=== PATIENT | female | born 1955 | race Caucasian/White ===

== ENCOUNTER 2020-12-26 05:16 | Inpatient (IN) ==
--- NOTE | 2020-12-21 08:40 | Anesthesiology Consultation ---
Date of Service December 21, 2020 Assessment & Plan (1) Encounter for pre-operative examination: - COVID screening: Per assessment on 12/12: Travel screen negative, no known COVID-19 positive contacts or current COVID-19 related symptoms. Surgeon arranging preop COVID testing (12/20 at [facility] [place]). Awaiting results. - Cardiology (09/05/20): Seen for preoperative cardiac visit. Hx of LBBB noted on stress test in 2018- was converted to Lexiscan stress test which was negative for ischemia. EKG done in office- "rate-related, normal EKG." Previous stress testing negative for ischemia- no anginal symptoms. "No further testing is required prior to surgery... She is an acceptable cardiovascular risk for any necessary surgery such as knee replacement surgery and does not require further cardiac testing." Chart Review Chart Review: Acceptable Risk for Surgery and Patient NOT seen in Pre Admission Testing History Surgery Operation Date: 12/26/20 10:20 Proposed Procedures p Right Total Knee Arthroplasty - Nathan Li DO Height/Weight Height: 5 ft 6 in Weight: 86.183 kg Allergies Allergy/AdvReac Type Severity Reaction Status Date / Time suture Allergy Intermediate Vicryl Verified 12/12/20 16:54 suture- caused infection Medications Home Medications Medication Instructions Recorded Confirmed Last Taken albuterol sulfate [Ventolin HFA] 2 puff INHALATION 6XD PRN 06/21/20 12/12/20 Unknown calcium carbonate [Calcium 600] 600 mg PO QAM 06/21/20 12/12/20 Unknown cholecalciferol (vitamin D3) 5,000 mcg PO QAM 06/21/20 12/12/20 Unknown [Vitamin D3] cyanocobalamin (vitamin B-12) 2,500 mcg PO QAM 06/21/20 12/12/20 Unknown fluticasone propionate 1 inh INHALATION DAILY PRN 06/21/20 12/12/20 Unknown ibuprofen 400 mg PO Q6H PRN 06/21/20 12/12/20 Unknown levothyroxine 50 mcg PO QAM 06/21/20 12/12/20 Unknown multivitamin with iron 1 tab PO QAM 06/21/20 12/12/20 Unknown venlafaxine 150 mg PO QAM 06/21/20 12/12/20 Unknown Bifidobacterium infantis [Align] 10.5 mg PO QAM 09/06/20 12/12/20 Unknown aspirin [Aspirin Low Dose] 81 mg PO QAM 09/06/20 12/12/20 Unknown lisinopril 40 mg PO QAM 09/06/20 12/12/20 Unknown rosuvastatin 10 mg PO 09/06/20 12/12/20 Unknown zinc 50 mg PO QAM 09/06/20 12/12/20 Unknown Past Medical History Medical History Anemia Under surveillance by PCP Anxiety Asthma Well controlled/"allergy induced" DVT (deep venous thrombosis) Post-op hysterectomy (1996)- AC since discontinued, no issues since History of COVID-19 Dx 08/25/20 ([facility] Symptoms at time of severe headache, fatigue, SOB > symptoms resolved except occasional headache Hyperlipidemia Hypertension Hypothyroidism LBBB (left bundle branch block) Chronic > noted on 2018 stress test (negative for ischemia) Osteoarthritis Past Family History Family History Mother Family history of diabetes mellitus Family history of reaction to anesthesia extra sleepy, oxygen saturation would drop while sleeping. Aunt Family hx of colon cancer Family history of diabetes mellitus Family history of reaction to anesthesia extra sleepy, oxygen saturation would drop while sleeping. Aunt Family hx of colon cancer Family history of diabetes mellitus Aunt Family history of diabetes mellitus Aunt Family history of diabetes mellitus Aunt Family history of diabetes mellitus Uncle Family history of diabetes mellitus Past Surgical History Surgical History H/O bladder repair surgery Bladder tack H/O hemorrhoidectomy H/O laparoscopy History of colonoscopy History of hysterectomy with unilateral oophorectomy History of tonsillectomy Slow to wake up after anesthesia Social History Smoking Status: Never smoker Do You Dip or Chew Tobacco: No Hx Alcohol Use: Yes Alcohol type: wine alcohol intake frequency: holidays/special occasions only Hx Substance Use: No substance use type: does not use Lab Results Anesthesia Preop Results Results Anesthesia Widget: WBC 6.35 K/uL (4.8-10.8) 12/20/20 Hgb 12.5 g/dL (12.0-16.0) 12/20/20 Hct 37.3 % (37-47) 12/20/20 Plt 300 K/uL (130-400) 12/20/20 Na 140 mmol/L (136-145) 12/20/20 K 4.2 mmol/L (3.5-5.1) 12/20/20 Cl 107 mmol/L (98-107) 12/20/20 CO2 29 mmol/L (21-32) 12/20/20 BUN 24 mg/dl (7-18) H 12/20/20 Creat 0.84 mg/dl (0.6-1.2) 12/20/20 Glucose Level 91 mg/dl (70-99) 12/20/20 PT 10.3 Seconds (9.0-12.0) 12/20/20 PTT 25.6 Seconds (21.0-31.0) 12/20/20 INR 1.0 (0.9-1.1) 12/20/20 HA1c 5.8 % (4.5-5.6) H 12/20/20 Urine Color Yellow 12/20/20 Urine Appearance Clear (Clear) 12/20/20 Urine pH 5.0 (4.5-7.5) 12/20/20 Urine Specific Nye 1.023 (1.000-1.030) 12/20/20 Urine Protein Negative (Negative) 12/20/20 Urine Glucose (UA) Negative (Negative) 12/20/20 Urine Ketones Negative (Negative) 12/20/20 Urine Blood Negative (Negative) 12/20/20 Urine Nitrite Negative (Negative) 12/20/20 Urine Bilirubin Negative (Negative) 12/20/20 Urine Urobilinogen Negative (Negative) 12/20/20 Urine Leukocyte Esterase Negative (Negative) 12/20/20 Lab Comments: 09/14/20 T&S B+ Ab- Testing Electrocardiogram Date: 09/14/20 Findings: + NSR @ (81) Chest X-Ray Date: 09/14/20 Findings: + NAD Stress Test Date: 06/09/18 Type: nuclear Myocardial perfusion imaging done at rest and after stress is normal. No evidence of ischemia or infarction. EF 63%. Wall motion is normal.
--- NOTE | 2020-12-22 20:41 | History & Physical Report ---
Date of Service December 26, 2020 Assessment & Plan (1) Degenerative joint disease of knee, right: I have indicated the patient for right total knee replacement. The risks, benefits and complications of surgery were explained to the patient which include but not limited to infection, acute blood loss, DVT/PE, injury to nerves, vessels, bone, soft tissue, arthrofibrosis, chronic pain, failure of the prosthesis, knee dislocation, leg length discrepancy, need for additional surgery, cardiac and pulmonary events and . The patient wished to proceed with surgery and informed consent was obtained at this time. We will plan for Lovenox post-operatively for DVT prophylaxis, hx DVT. Upon discharge the patient will be discharged home with home health services. Appropriate clearances by PCP and cardiology were obtained. History of Present Illness Chief Complaint: Right knee pain/DJD Primary Care Provider: MORIAH Novak The patient is a 65 year old female who presents with complaints of severe right knee pain and DJD. The patient has failed outpatient conservative treatments to this point which included NSAIDs, IA corticosteroid and AGUERO injection, HEP. The patient's pain and limited function have progressed to the point where they severely hinder their activities of daily living and they no longer tolerate exercise programs. They are requesting to proceed with total knee replacement surgery. Allergies Allergy/AdvReac Type Severity Reaction Status Date / Time suture Allergy Intermediate Vicryl Verified 12/26/20 05:31 suture- caused infection Home Medications Medication Instructions Recorded Confirmed Type albuterol sulfate [Ventolin HFA] 2 puff INHALATION 6XD PRN 06/21/20 12/26/20 History calcium carbonate [Calcium 600] 600 mg PO QAM 06/21/20 12/26/20 History cholecalciferol (vitamin D3) 5,000 mcg PO QAM 06/21/20 12/26/20 History [Vitamin D3] cyanocobalamin (vitamin B-12) 2,500 mcg PO QAM 06/21/20 12/26/20 History fluticasone propionate 1 inh INHALATION DAILY PRN 06/21/20 12/26/20 History ibuprofen 400 mg PO Q6H PRN 06/21/20 12/26/20 History levothyroxine 50 mcg PO QAM 06/21/20 12/26/20 History multivitamin with iron 1 tab PO QAM 06/21/20 12/26/20 History venlafaxine 150 mg PO QAM 06/21/20 12/26/20 History Bifidobacterium infantis [Align] 10.5 mg PO QAM 09/06/20 12/26/20 History aspirin [Aspirin Low Dose] 81 mg PO QAM 09/06/20 12/26/20 History lisinopril 40 mg PO QAM 09/06/20 12/26/20 History rosuvastatin 10 mg PO HS 09/06/20 12/26/20 History zinc 50 mg PO QAM 09/06/20 12/26/20 History Past Med/Surg History Medical History Anemia Under surveillance by PCP Anxiety Asthma Well controlled/"allergy induced" DVT (deep venous thrombosis) Post-op hysterectomy (1996)- AC since discontinued, no issues since History of COVID-19 D[facility] 08[facility]/20 ([facility] Symptoms at time of severe headache, fatigue, SOB > symptoms resolved except occasional headache Hyperlipidemia Hypertension Hypothyroidism LBBB (left bundle branch block) Chronic > noted on 2018 stress test (negative for ischemia) Osteoarthritis Surgical History H/O bladder repair surgery Bladder tack H/O hemorrhoidectomy H/O laparoscopy History of colonoscopy History of hysterectomy with unilateral oophorectomy History of tonsillectomy Slow to wake up after anesthesia Family History Mother Family history of diabetes mellitus Family history of reaction to anesthesia extra sleepy, oxygen saturation would drop while sleeping. Aunt Family hx of colon cancer Family history of diabetes mellitus Family history of reaction to anesthesia extra sleepy, oxygen saturation would drop while sleeping. Aunt Family hx of colon cancer Family history of diabetes mellitus Aunt Family history of diabetes mellitus Aunt Family history of diabetes mellitus Aunt Family history of diabetes mellitus Uncle Family history of diabetes mellitus Social History Smoking Status: Never smoker Second Hand Exposure: Yes (father smoked); Do You Dip or Chew Tobacco: No; Hx Alcohol Use: Yes Alcohol type: wine Hx Substance Use: No Preferred Language: Turkish Communication Ability: Effective Trimming Cutter Machine Required: No Beliefs That Will Affect Care: None Current Living Situation: Significant Other Feels Safe at Home: Yes Safety Concerns: Feels Safe At This Time Assistive Devices: Glasses Review of Systems Review of Systems: All systems reviewed & are unremarkable except as noted in HPI & below Constitutional: as per Subjective / HPI Physical Exam Physical Exam: RLE NVSI +EHL/FHL/TA/GS SILT grossly, +2 DP pulse, compartments soft NT, limited painful ROM of the knee, 5-110 degrees of flexion. Constitutional: WD/WN, vitals as above Eyes: PERRL, conjunctivae normal, anicteric sclerae ENMT: external ear and nose normal, oropharynx normal Neck: trachea midline, no thyromegaly Respiratory: normal respiratory effort, lungs clear to auscultation Cardiovascular: RRR, no murmur, no edema Gastrointestinal (Abdomen): normal bowel sounds, soft, nontender, no hepatosplenomegaly Musculoskeletal: no cyanosis or clubbing, extremities motor strength 5/5 Skin: no rashes, warm and dry Neurologic: patellar DTR's 2+ bilat, sensation intact Psychiatric: A+Ox3, euthymic affect Lymphatic: no cervical or axillary lymphadenopathy Results & Data Results & Data ([place]) Diagnostic Findings Multiple views of the knee demonstrates severe tricompartmental DJD with complete loss of the medial joint space. +osteophytes, +sclerosis, +subchondral cysts.
[2020-12-26] MEDS ORDERED: TRANEXAMIC ACID 1,000 MG **IV Intra-op IV SCH (06:00)
[2020-12-26] MEDS ORDERED: ceFAZolin 2000MG 2,000 MG/15 ML SYR IV SCH (06:00)
[2020-12-26] MEDS ORDERED: ROPIVACAINE 0.5% HCL/PF 150 MG, BUPIVACAINE 0.75% MPF 20 ML, EPINEPHrine 30MG/30ML (OR ... INFIL SCH (06:00)
[2020-12-26] MEDS ORDERED: CeleBREX 200 MG CAP PO SCH (06:00)
[2020-12-26] MEDS ORDERED: ACETAMINOPHEN 500 MG TAB PO SCH (06:00)
[2020-12-26] MEDS ORDERED: LR 500ML BOLUS, THEN 15ML/HR IV SCH (06:00)
[2020-12-26] MEDS ORDERED: FAMOTIDINE 20 MG TAB PO SCH (06:00)
[2020-12-26] MEDS ORDERED: TRANEXAMIC ACID 1,000 MG **IV Pre-op IV SCH (06:00)
[2020-12-26] MEDS ORDERED: dexAMETHasone 4 MG TAB PO SCH (06:00)
[2020-12-26] MEDS ORDERED: METOCLOPRAMIDE HCL 10 MG TABLET PO SCH (06:00)
[2020-12-26] MEDS ORDERED: PROPOFOL IV EMULSION 10 MG/ML 20 ML VIAL IV ONE ×3 (06:37→08:40)
[2020-12-26] MEDS ORDERED: ORTHO JOINT ANESTHETIC ONE (06:37)
[2020-12-26] MEDS ORDERED: BACITRACIN INJ 50,000 UNIT VIAL ONE (06:37)
[2020-12-26] MEDS ORDERED: MIDAZOLAM HCL 1 MG/ML 2ML VIAL ONE (06:38)
--- NOTE | 2020-12-26 06:45 | History & Physical Bridge Note ---
Date of Service December 26, 2020 History & Physical Bridge Note I have examined the patient, reviewed the History & Physical and in the interval since the performance of the History & Physical I have noted the following changes of clinical significance: no changes noted
[2020-12-26] MEDS ORDERED: WATER, STERILE FOR INJ 10 ML VIAL ONE (06:47)
[2020-12-26] MEDS ORDERED: BUPIVACAINE 0.5 % 5 MG/1 ML PF 10ML VIAL ONE (06:47)
[2020-12-26] MEDS ORDERED: ATROPINE SULFATE 0.1 MG/ML 10ML SYR IV PRN (07:21)
[2020-12-26] MEDS ORDERED: ePHEDrine sulfate 50 MG/ML AMP IV PRN (07:21)
[2020-12-26] MEDS ORDERED: LIDOCAINE HCL 2% 2 ML VIAL/AMP(20MG/ML) INFIL ONE (07:49)
--- NOTE | 2020-12-26 08:45 | Post Operative Brief Note ---
Immediate Post Op Note v1 Date of Surgery December 26, 2020 Pre & Post Diagnosis Operation Date: 12/26/20 07:00 Pre-Op Diagnosis: Unilateral Primary Osteoarthritis Right Knee Post-Op Diagnosis: Unilateral Primary Osteoarthritis Right Knee I identified the patient and participated in the time-out.: Yes Procedure Operation Date: 12/26/20 07:00 Actual Procedures p Right Total Knee Arthroplasty(Right) - Nathan Li DO Surgeon Nathan Li DO Sustainability Project Coordinator Remy Ramon Estimated Blood Loss 55 Findings Consistent with Post-Op Diagnosis Fluids See anesthesia report Specimens Proximal tibia and distal femur bone fragment Anesthesia Type Spinal MAC Complications none Disposition Disposition: Recovery Room Overlapping Procedure I was present for: the critical portions of procedure. I was immediately available: during the entire case. Back up surgeon: was not required during procedure.
--- NOTE | 2020-12-26 08:47 | Operative Report ---
Post Operative Report Pre & Post Diagnosis Operation Date: 12/26/20 07:00 Pre-Op Diagnosis: Unilateral Primary Osteoarthritis Right Knee Post-Op Diagnosis: Unilateral Primary Osteoarthritis Right Knee I identified the patient and participated in the time-out.: Yes Procedure Operation Date: 12/26/20 07:00 Actual Procedures p Right Total Knee Arthroplasty(Right) - Nathan Li DO Surgeon Nathan Li, Geologist Petroleum Remy Ramon Estimated Blood Loss 55 Findings Consistent with Post-Op Diagnosis Fluids See anesthesia report Specimens Proximal tibia and distal femur bone fragments Anesthesia Type Spinal MAC Complications none Disposition Disposition: Recovery Room Indications The patient is a 65-year-old female presents with long history of severe right knee tricompartmental DJD and failed outpatient conservative treatments including NSAIDs, bracing, injections and home walking/exercise program. The patient's symptoms have progressed to the point where it has been difficult to perform normal activities of daily living. I have indicated the patient for a right total knee arthroplasty, the risks and benefits and complications of the procedure include but are not limited to infection bleeding damage to bone, nerves, vessels, surrounding soft tissue, blood clots, loss of function, leg length discrepancy, dislocation, failure of the components, need for additional surgery and . The patient wished to proceed with surgery at this time and informed consent was obtained. Appropriate clearances were obtained. Description of Procedure COMPONENTS USED: Rigo persona knee system: Femur size 8 standard, Tibia size E, Tibial articulating surface 10 CPS, Patella 32 mm Following induction of spinal anesthesia, a tourniquet was applied to the proximal aspect of the thigh and the patient's right leg was prepped and draped in the usual sterile manner. A timeout was performed, patient identified and site oksana confirmed. Appropriate pre-operative IV antibiotics were given. The limb was exsanguinated with an Esmarch bandage and tourniquet was inflated to 300 mmHg. A longitudinal midline incision was made over the anterior knee. Subcutaneous tissue was sharply dissected down to fascia. Electrocautery was used for hemostasis. Next a parapatellar arthrotomy was performed. Patella was everted and the knee was flexed. A Lucas retractor was used to expose the synovium above on the anterior aspect of the femur and removed down to bone. Next, the anterior fat pad was removed to aid in visualization. The medial face of the tibia was cleared of soft tissue first with a Bovie and a mendenhall elevator. This tissue was retracted posteriorly using a blunt Hohmann. Next, the extra-medullary tibial cutting guide was placed to the anterior aspect of the tibia. The tibia resection level was set taking 2mm from the defective tibial condyle. Resection depth was once again confirmed with sindhu wing. The medial and lateral collateral ligament was protected with two Hohmann retractors. The tibia guide was removed and proximal tibial bone fragment removed utilizing straight osteotome, electrocautery and Yemi. Next, the distal femur intramedullary canal was accessed utilizing the step drill. The intramedullary distal femur cutting guide was placed into the canal and pinned into place. The distal femur was cut on the 5 degree setting. Next the cutting guide was removed and the femur was sized. Care was taken to ensure appropriate senior hardware engineer all rotation and 3 degree holes were drilled. A size 8 4-in-1 cutting block was placed on the distal end of the femur and secured into place with two short headed screws. Two bent Hohmann retractors were placed to protect the medial and lateral collateral ligaments. The oscillating saw was used to cut anterior, posterior, anterior chamfer and posterior chamfer. The four and one cutting block was removed and bone fragments excised. Laminar appointment manager was placed laterally and the ACL and PCL were removed followed by the medial meniscus and posterior medial osteophytes. Aquamantys was utilized for any posterior medial bleeders and Orthomix injected into the posterior medial capsule. A laminar appointment manager was then placed in the medial compartment and the lateral meniscus and posterior osteophytes were removed. Aquamantys was utilized for any posterior lateral bleeders and Orthomix injected into the posterior lateral capsule. Next, drop bao and spacer block were placed with the leg in flexion and ex tension to assess alignment and flexion/extension gaps. Next, the proximal tibia was assessed and two bent Hohmans were placed medial and lateral to aid in visualization. The appropriate tibia size and rotation was selected and a size E tibial plate was pinned into place with appropriate rotation. Preparation of the tibia was completed utilizing the matching tibial drill and broach. I then turned my attention back to the distal femur in a trial femoral component was impacted into place. Appropriate femoral width was assessed and selected. Next the femur PS box cut guide was placed and cut made with the reciprocal saw and the PS box provisional placed. A trial size 10 PS tibia articular tray was placed and varus-valgus balance assessed in 0 degrees of extension and 30, 60 and 90 degrees of flexion. A final tibial articular surface size 10 CPS was chosen. Assess was gained to the patella and caliper utilized to measure width. The patella reamer was utilized and remaining bone removed with oscillating saw. A size 32 mm patella button was selected and the patella pegs drilled. Trial patella button was placed and tracking was assessed. The knee was found to be well balanced, well aligned with excellent patella tracking. The trials were removed and final components were obtained and assembled. The knee was irrigated copiously with sterile saline solution mixed with bacitracin. Access to the proximal tibia was once again obtained utilizing to the Hohmans and the proximal tibia and distal femur were dried with lap sponges. The final components were cemented into place and all excess cement was removed. A trial tibial articular surface was placed while cemented hardened. Knee stability was once again assessed and the final component inserted. A Betadine soak was performed. After 3 minutes, the knee was once more irrigated with copious sterile saline solution with bacitracin. The knee was injected with the remaining Orthomix which includes a combination of Ropivicaine 0.5% 150mg, Bupivicaine 0.5%/Epinephrine 1:200,000 30ml, Toradol 30mg, Dexamethasone 4mg, Ketamine 10mg, Clonidine 100mcg and NSS 30ml solution. The capsulotomy was closed with #1 PDS followed by subcutaneous closure with 2-0 PDS suture and a 3- 0 V-lock suture. Skin closure was performed using negro and a sterile dry dressing was applied which included Xeroform, 4 x 4's, ABD web roll and Douglas wrap. Tourniquet was deflated at 88 minutes. The patient tolerated the procedure well and was taken to the PACU in stable condition. Due to the complex nature of the procedure, the entire surgery was performed with the operational assistance of Remy Ramon PA-C. The sales office assistant, under direct supervision, was involved in the actual performance of all aspects of the surgical procedure including patient positioning, hemostasis, tissue retraction, instrument management and wound closure. I attest to the content of the Intraoperative Record and any orders documented therein. Any exceptions are noted below.
--- NOTE | 2020-12-26 10:05 | XRay Report ---
XR knee RT 1 or 2V routine CLINICAL HISTORY: Postoperative evaluation. COMPARISON: None FINDINGS: Alignment of the total right knee arthroplasty is anatomic. There is no periprosthetic fra cture or unexpected radiopaque foreign body. There are skin negro. IMPRESSION: Expected findings following total right knee arthroplasty. ACT 112: Negative or not required by law. Electronically signed by: Joseluis Fitch M.D. 12/26/2020 10:03 AM
[2020-12-26] MEDS ORDERED: ALBUTEROL HFA 8 GM INHALER INH PRN (10:16)
[2020-12-26] MEDS ORDERED: HYDROmorphone INJ 0.5 MG/0.5 ML SYR IV PRN (10:16)
[2020-12-26] MEDS ORDERED: bisacodyL 10 MG SUPP PR PRN (10:16)
[2020-12-26] MEDS ORDERED: MAGNESIUM HYDROXIDE SUSP 30 ML UDC PO PRN (10:16)
[2020-12-26] MEDS ORDERED: NALOXONE HCL 0.4 MG/1 ML VIAL/CARP IV PRN (10:16)
[2020-12-26] MEDS ORDERED: METOCLOPRAMIDE HCL INJ 5 MG/ML 2 ML VIAL IV PRN (10:16)
[2020-12-26] MEDS ORDERED: diphenhydrAMINE 50 MG/ML VIAL IV PRN (10:16)
[2020-12-26] MEDS ORDERED: ONDANSETRON INJ 2 MG/ML 2 ML VIAL IV PRN (10:16)
[2020-12-26] MEDS ORDERED: FLUTICASONE/VILANTEROL 200/25MCG 14 PUFFS/INHALER INH PRN (10:48)
--- NOTE | 2020-12-26 11:12 | Anesthesiology Progress Note ---
Date of Service December 26, 2020 Anesthesia Post Procedure Vital Signs Vital Signs: Temp Pulse Pulse Pulse Resp BP BP 12/26/20 10:40 36.4 C L 80 16 115/71 12/26/20 10:10 36.5 C 85 16 119/76 12/26/20 10:00 82 16 124/71 12/26/20 09:45 36.7 C 96 H 16 116/71 12/26/20 09:30 87 16 112/67 12/26/20 09:20 66 16 108/65 12/26/20 09:13 36.8 C 84 16 110/57 L 12/26/20 05:39 36.8 C 85 18 128/78 Pulse Ox 12/26/20 10:40 94 12/26/20 10:10 95 12/26/20 10:00 95 12/26/20 09:45 100 12/26/20 09:30 100 12/26/20 09:20 100 12/26/20 09:13 99 12/26/20 05:39 96 Pain Intensity Right Knee: Pain Intensity: 3 Transfer of Care Handoff Completed per policy Notes Mental Status: alert / awake / arousable and participated in evaluation Nausea / Vomiting: adequately controlled Pain: adequately controlled Airway Patency, RR, SpO2: stable & adequate BP & HR: stable & adequate Hydration State: stable & adequate Neuraxial Anesthesia: was administered and sensory block is resolving Anesthetic Complications: no major complications apparent and Pt Satisfied with anesthetic care
[2020-12-26] MEDS: MULTIVITAMIN TAB PO SCH (11:38)
[2020-12-26] MEDS: lisinopril 40 MG TAB PO SCH (11:38)
[2020-12-26] MEDS: ADVANCED PROBIOTIC 1250 MG CAPSULE PO SCH (11:38)
[2020-12-26] MEDS: VENLAFAXINE HCL XR 150 MG CAPXR PO SCH (11:38)
[2020-12-26] MEDS: DOCUSATE SODIUM 100 MG CAP PO SCH ×2 (11:38→20:59)
[2020-12-26] MEDS: LEVOTHYROXINE SODIUM 50 MCG TABLET PO SCH (11:40)
[2020-12-26] MEDS: ACETAMINOPHEN 500 MG TAB PO SCH ×2 (13:59→20:59)
[2020-12-26] MEDS: SODIUM CHLORIDE 0.9% 1000ML 1,000 ML IV SCH ×2 (15:40→23:27)
[2020-12-26] MEDS: ceFAZolin 2000MG 2,000 MG/15 ML SYR IV SCH ×2 (15:44→23:26)
--- NOTE | 2020-12-26 18:24 | Orthopedic Progress Note ---
Date of Service December 26, 2020 Assessment & Plan (1) Degenerative joint disease of knee, right: Status post right total knee arthroplasty -Ancef x24 -DVT prophylaxis: SCDs, teds, Lovenox daily -Weight-bear as tolerated right lower extremity -PT/OT -Postoperative x-ray demonstrates a well aligned well fixed prosthesis without fracture or dislocation -A.m. labs -DC planning Admission and Anticipated Discharge Date Admission Date: December 26, 2020 Subjective Post Operative Progress Note Patient seen sitting up in bed, comfortable, denies complaints, pain well con trolled, no acute issues. Review of Systems Review of Systems: All systems reviewed & are unremarkable except as noted in HPI & below Constitutional: as per Subjective / HPI Physical Exam Physical Exam: RLE NVSI +EHL/FHL/TA/GS SILT grossly, +2 DP pulse, compartments soft NT, dressing cdi. Constitutional: WD/WN, vitals as above Results & Data ([facility]) Vital Signs (Past 12 Hours) Vital Signs Temp Pulse Pulse Resp BP Pulse Ox 12/26/20 16:43 37.0 C 87 16 153/78 H 95 12/26/20 13:10 36.5 C 86 16 133/78 92 12/26/20 12:10 36.8 C 75 16 132/81 92 12/26/20 11:10 36.5 C 86 16 149/78 H 95 12/26/20 10:40 36.4 C L 80 16 115/71 94 12/26/20 10:10 36.5 C 85 16 119/76 95 12/26/20 10:00 82 16 124/71 95 12/26/20 09:45 36.7 C 96 H 16 116/71 100 12/26/20 09:30 87 16 112/67 100 12/26/20 09:20 66 16 108/65 100 12/26/20 09:13 36.8 C 84 16 110/57 L 99
[2020-12-26] MEDS ORDERED: SENNA 8.6 MG TAB PO SCH (21:00)
[2020-12-26] MEDS ORDERED: ROSUVASTATIN CALCIUM 10 MG TAB PO SCH (21:00)
[2020-12-27] MEDS: ACETAMINOPHEN 500 MG TAB PO SCH ×2 (05:38→13:27)
[2020-12-27] MEDS: LEVOTHYROXINE SODIUM 50 MCG TABLET PO SCH (05:38)
[2020-12-27 06:38] LABS: Hematocrit (blood only) 30.6 % (37-47); Hemoglobin 10.4 g/dL (12.0-16.0); Mean Corpuscular Hemoglobin 30.5 pg (25-34); Mean Corpuscular Volume 89.7 fL (80-100); Mean Platelet Volume 10.3 fL (7.4-10.4); Platelet Count 283 K/uL (130-400); RDW Coefficient of Variation 12.9 % (11.5-14.5); RDW Standard Deviation 42.3 fL (36.4-46.3); Red Blood Count 3.41 M/uL (4.2-5.4); White Blood Count 11.98 K/uL (4.8-10.8)
[2020-12-27 06:56] LABS: BUN Creatinine Ratio 29.8 (10-20); Calcium 8.6 mg/dl (8.5-10.1); Creatinine Clr Calc Pharmacy 60.5 ml/min; Est GFR (African American) 65.6; Est GFR (Non-African American) 56.6; Potassium 3.8 mmol/L (3.5-5.1)
[2020-12-27] MEDS ORDERED: ENOXAPARIN INJ 40 MG/0.4 ML SYR SQ SCH (09:00)
[2020-12-27] MEDS: MULTIVITAMIN TAB PO SCH (09:02)
[2020-12-27] MEDS: VENLAFAXINE HCL XR 150 MG CAPXR PO SCH (09:02)
[2020-12-27] MEDS: ADVANCED PROBIOTIC 1250 MG CAPSULE PO SCH (09:02)
[2020-12-27] MEDS: DOCUSATE SODIUM 100 MG CAP PO SCH (09:02)
[2020-12-27] MEDS: lisinopril 40 MG TAB PO SCH (09:02)
[2020-12-27] MEDS: oxyCODONE HCL IR 5 MG TAB (IMMEDIATE RELEASE) PO PRN ×2 (09:05→15:21)
--- NOTE | 2020-12-27 12:05 | Orthopedic Progress Note ---
Date of Service December 27, 2020 Assessment & Plan (1) Degenerative joint disease of knee, right: Status post right total knee arthroplasty -Ancef x24,then dc. -DVT prophylaxis: SCDs, teds, Lovenox daily -Weight-bear as tolerated right lower extremity -PT/OT -Postoperative x-ray demonstrates a well aligned well fixed prosthesis without fracture or dislocation -A.m. labs as noted -DC planning - Pt planning for services upon DC Admission and Anticipated Discharge Date Admission Date: December 26, 2020 Supervising Physician Co-Signing Physician Notes Patient seen and examined agree with above assessment and plan. Subjective POD 1 Pt sitting in chair at bedside. Was having knee pain ealier but better after having some pain medication. No other complaints. Denies SOB,CP,LH Physical Exam Physical Exam: Dressings C/D/I. Calves soft, NT. NV intact. States she gets some foot numbness with the leg in certain positions. Good DF/PF of the operative side. Results & Data ([facility]) Vital Signs (Past 12 Hours) Vital Signs Temp Pulse Resp BP Pulse Ox 12/27/20 11:44 36.8 C 87 16 146/78 H 95 12/27/20 08:21 36.8 C 85 16 146/77 H 95 12/27/20 03:31 36.8 C 93 H 18 141/72 H 95 Laboratory Results Laboratory Results WBC 11.98 K/uL (4.8-10.8) H 12/27/20 06:07 RBC 3.41 M/uL (4.2-5.4) L 12/27/20 06:07 Hgb 10.4 g/dL (12.0-16.0) L 12/27/20 06:07 Hct 30.6 % (37-47) L 12/27/20 06:07 MCV 89.7 fL (80-100) 12/27/20 06:07 MCH 30.5 pg (25-34) 12/27/20 06:07 MCHC 34.0 g/dL (32-36) 12/27/20 06:07 RDW Std Deviation 42.3 fL (36.4-46.3) 12/27/20 06:07 RDW Coeff of Carl 12.9 % (11.5-14.5) 12/27/20 06:07 Plt Count 283 K/uL (130-400) 12/27/20 06:07 MPV 10.3 fL (7.4-10.4) 12/27/20 06:07 Sodium 141 mmol/L (136-145) 12/27/20 06:07 Potassium 3.8 mmol/L (3.5-5.1) 12/27/20 06:07 Chloride 111 mmol/L (98-107) H 12/27/20 06:07 Carbon Dioxide 23 mmol/L (21-32) 12/27/20 06:07 Anion Gap 6.0 (3-11) 12/27/20 06:07 BUN 31 mg/dl (7-18) H 12/27/20 06:07 Creatinine 1.03 mg/dl (0.6-1.2) 12/27/20 06:07 Est Cr Clr Drug Dosing 60.5 ml/min 12/27/20 06:07 Est GFR ( Amer) 65.6 12/27/20 06:07 Est GFR (Non-Af Amer) 56.6 12/27/20 06:07 BUN/Creatinine Ratio 29.8 (10-20) H 12/27/20 06:07 Glucose 116 mg/dl (70-99) H 12/27/20 06:07 Calcium 8.6 mg/dl (8.5-10.1) 12/27/20 06:07 COVID-19 Eval Order Covid19 [facility] 12/26/20 Unknown SARS-CoV-2, RNA, NAAT NEGATIVE (NEGATIVE) 12/26/20 Unknown Blood Type B Positive 12/26/20 05:35 Antibody Screen NEGATIVE 12/26/20 05:35 Impressions Knee X-Ray 12/26/20 09:15 XR knee RT 1 or 2V routine CLINICAL HISTORY: Postoperative evaluation. COMPARISON: None FINDINGS: Alignment of the total right knee arthroplasty is anatomic. There is no periprosthetic fracture or unexpected radiopaque foreign body. There are skin negro. IMPRESSION: Expected findings following total right knee arthroplasty. ACT 112: Negative or not required by law. Electronically signed by: Joseluis Fitch M.D. 12/26/2020 10:03 AM
--- NOTE | 2020-12-27 23:17 | Discharge Summary ---
Date of Service December 27, 2020 Admission HPI Per Admitting Provider The patient is a 65 year old female who presents with complaints of severe right knee pain and DJD. The patient has failed outpatient conservative treatments to this point which included NSAIDs, IA corticosteroid and AGUERO injection, HEP. The patient's pain and limited function have progressed to the point where they severely hinder their activities of daily living and they no longer tolerate exercise programs. They are requesting to proceed with total knee replacement surgery. Principal Diagnosis Right total knee replacement Discharge Exam RLE NVSI +EHL/FHL/TA/GS SILT grossly, +2 DP pulse, compartments soft NT, dressing cdi. Constitutional WD/WN, vitals as above Discharge Data Allergies Allergy/AdvReac Type Severity Reaction Status Date / Time suture Allergy Intermediate Vicryl Verified 12/26/20 05:31 suture- caused infection Procedures Performed Operation Date: 12/26/20 07:00 Actual Procedures p Right Total Knee Arthroplasty(Right) - Nathan Li DO Ordered Studies 12/26/20 05:00 US - OR guided needle placemen Routine Hospital Course (1) Degenerative joint disease of knee, right: The patient is a 65 -year-old female who presents with long standing history of severe right knee DJD and failed outpatient conservative treatments. The patient's symptoms have progressed to the point where it has been difficult to perform even normal activities of daily living. I indicated the patient for a right total knee arthroplasty, the risks, benefits and complications of the procedure include but not limited to infection, bleeding, damage to bone, nerves, vessels, surrounding soft tissue, may develop blood clots, loss of function, leg length discrepancy, dislocation, failure of the components, loosening of the components, the need for additional surgery and . The patient wished to proceed with surgery at this time and informed consent was obtained. Hospital Course: On 12/26/20 the patient was taken to the operating room, adequate anesthesia administered and underwent a right total knee arthroplasty. The patient tolerated the procedure well and was taken to the PACU in stable condition. Post-operatively the patient was started on a DVT ppx medication and given appropriate IV antibiotics. Consults were placed to physical therapy, occupational therapy and case management. On POD#1, the patient did well overnight and their pain was well controlled. Labs were drawn and the Hgb was 10.4. The patient progressed well with PT. Dressings were changed at this time and the incision was clean, dry and intact. The patients hospital stay was relatively uneventful and they were deemed stable by the orthopedic team and consultants to be discharged home with HH on 12/27/20. Discharge Instructions: Upon discharge the patient may weight bear as tolerates through their operative extremity. They were instructed to keep the incision clean and dry at all times. The patient may shower but should not submerge the incision, avoid bathing, pools and hot tubs. The patient was given a script for pain medication and should take as instructed. The patient was given a script for DVT ppx Lovenox 40mg daily and should take as directed. The patient was instructed to not drive or travel for long distances until cleared to do so. If the patient develops any symptoms of fevers, chills, nausea, vomiting, increased redness, swelling, pain or drainage from the surgical site, they should notify the office and/or proceed to the nearest emergency room. The patient should follow up in 10-14 days after surgery for their routine post-operative follow-up appointment and should call the office, to confirm the date and time. Status post right total knee arthroplasty -Ancef x24,then dc. -DVT prophylaxis: SCDs, teds, Lovenox daily -Weight-bear as tolerated right lower extremity -PT/OT -Postoperative x-ray demonstrates a well aligned well fixed prosthesis without fracture or dislocation -A.m. labs as noted -DC planning - Pt planning for HH services upon DC Total Time Total Time Spent Total Time Spent (In Minutes): 30 Discharge Plan Discharge Items Patient Disposition: Home - Home Health Services Reason For Visit: Unilateral Primary Osteoarthritis Right Knee Discharge Diagnosis: Right total knee replacement Condition on Discharge: Good Activity: Per Instructions section Lifting: Wait until after follow-up appointment Bathing: Keep incision dry Bathing Comment: No bathing, pools or hot tubs. Sexual Activity: Wait until after follow-up appointment Exercise/Sports: Wait until after follow-up appointment Driving/Machine Use: No driving Weightbearing: Full weightbearing Non-emergency contact: Primary Care Provider and Surgeon Call non-emergency contact if: you have any medication questions, your symptoms worsen, your pain is not controlled, your pain is worsening, your pain is unusual for you, your pain is concerning for you, you have a fever, your temperature is above 101, your wound has increased redness, your wound has increased drainage and your wound pain has increased Follow-up/Referrals: Jackeline Buck PA-C [Primary Care Provider] - Diet: Regular Addtl Attending Provider Instructions: ACTIVITY RECOMMENDATIONS: SELF CARE INSTRUCTIONS AFTER TOTAL KNEE REPLACEMENT A. You may need to continue a physical therapy program after discharge from the hospital. There are several options available to you. Your doctor will assist you in selecting the best one for you. 1. An out-patient facility 2 to 3 times a week for therapy or home therapy. 2. Continue working on all exercises taught to you in the hospital. Your goals should be to increase bending of your knee to 90 degrees and beyond and to fully straighten your knee. B. You may progress at your own pace from walking with a walker or crutches to a cane; then to no assistive devices. C. Make walking a part of your daily routine. Be up as much as comfortable with rest periods throughout the day. Rest with leg elevation is very important. Use the ice wrap frequently for the first 3-4 weeks. D. There are no restrictions on activities. You may ride in a car, shop, participate in slab installer and all social activities. E. Wear the long elastic stockings (BOB hose) 20 hours a day for 2 weeks after surgery. They can be removed several times a day for laundering and for a bath. F. You may shower, no tub baths until cleared by your doctor. SPECIAL CARE INSTRUCTIONS: VERY IMPORTANT TO READ AND REVIEW A. There are a few signs you need to watch for after you are home. Call [facility] if you notice any of the followin. Increased severe knee pain. Some pain is expected especially when you exercise. 2. Increased swelling in your leg or knee; pain or swelling of the calf muscle in either lower leg. 3. Any fluid drainage from the incision. 4. Shortness of breath or chest pain. B. Please call [facility] at if you have any concerns or questions about your operation or recovery. The doctor or his nurse will return your call promptly. C. You must take antibiotics before dental work, bladder, bowel or other surgery. Your doctor will provide you with a permanent care to carry describing this precaution. IMPORTANT: * REMEMBER TO TAKE LOVENOX 40mg DAILY FOR 4 WEEKS UNLESS OTHERWISE DIRECTED. THIS IS YOUR BLOOD THINNER. * HIGH RISK PATIENTS MAY BE PRESCRIBED A STRONGER BLOOD THINNER. THIS WILL BE PROVIDED AT DISCHARGE. * CALL IF INCREASED PAIN, REDNESS, DRAINAGE OR FEVER GREATER THAT 101. * WEAR BOB HOSE 20 HOURS PER DAY FOR 2 WEEKS. * YOU MAY HAVE A LARGE BAND-AID LIKE DRESSING (SILVERON). THIS WILL REMAIN ON YOUR INCISION FOR 7 DAYS, THEN CAN BE REMOVED. IF INCISION IS LEAKING THROUGH DRESSING, CALL THE OFFICE . FOLLOW UP VISIT: If appointment is not already scheduled: Please call [facility] to make a follow-up appointment for 2 weeks after your surgery at . Pending Studies at Discharge: No Stand-Alone Forms: My [facility] [employer], Opioid Pain Management, Smoking Cessation Medications and DC Order Prescriptions: New enoxaparin 40 mg/0.4 mL Syringe 40 mg subcut Q24H Qty: 28 RF: 0 acetaminophen 500 mg Tablet 1,000 mg PO Q8 PRN (Reason: pain/fevers) Qty: 90 RF: 0 oxycodone 5 mg Tablet 5 mg PO Q6H MDD 4 PRN (Reason: pain) Qty: 30 RF: 0 sennosides [Senokot] 8.6 mg Tablet 17.2 mg PO HS PRN (Reason: constipation) Qty: 28 RF: 0 Continued venlafaxine 150 mg Capsule,Extended Release 24hr 150 mg PO QAM RF: 0 calcium carbonate [Calcium 600] 600 mg calcium (1,500 mg) Tablet 600 mg PO QAM RF: 0 albuterol sulfate [Ventolin HFA] 90 mcg/actuation Hfa Aerosol Inhaler 2 puff INHALATION 6XD PRN (Reason: Wheezing) RF: 0 cholecalciferol (vitamin D3) [Vitamin D3] 125 mcg (5,000 unit) Tablet 5,000 mcg PO QAM RF: 0 levothyroxine 50 mcg Capsule 50 mcg PO QAM RF: 0 cyanocobalamin (vitamin B-12) 2,500 mcg Tablet 2,500 mcg PO QAM RF: 0 fluticasone propionate 232 mcg/actuation Aerosol Powdr Breath Activated 1 inh INHALATION DAILY PRN (Reason: Wheezing) RF: 0 multivitamin with iron Tablet 1 tab PO QAM RF: 0 zinc 50 mg Tablet 50 mg PO QAM RF: 0 lisinopril 40 mg Tablet 40 mg PO QAM RF: 0 rosuvastatin 10 mg Tablet 10 mg PO HS RF: 0 Align 10.5 mg (10 million cell) Tablet,Chewable 10.5 mg PO QAM RF: 0 Discontinued ibuprofen 200 mg Tablet 400 mg PO Q6H PRN (Reason: Pain) RF: 0 aspirin [Aspirin Low Dose] 81 mg Tablet,Delayed Release (Dr/Ec) 81 mg PO QAM RF: 0 Discharge Orders: Discharge Order (Routine); Ordered 12/27/20 Ordered By: Remy Ramon Admission Data Admit Date/Time: 12/26/20 09:15 Attending Provider: Nathan Li Admit Provider: Nathan Li Primary Care Provider: Jackeline Buck Other Interventions: Discharge Summary Assessment (RN) Last Done: 12/27/20 12:25
== END 2020-12-27 16:49 | disposition home health service (06) | DRG 470 ==
LOC: 3W 05:16 → ASU 05:16 → OBSVTOIN 09:15